=== PATIENT | female | born 1990 | race Caucasian/White ===

== ENCOUNTER 2023-05-27 13:26 | Emergency (ER) | payer OTHER ==
[~2023-05-27] VITALS: Ht 152.4 cm; Wt 49.9 kg
[2023-05-27] MEDS ORDERED: ADENOSINE 6MG/2ML VIAL ONE (13:33)
[2023-05-27 13:53] LABS: BASOPHILS % (AUTO) 0.5 % (0.0-2.0); EOSINOPHILS # (AUTO) 0.1 K/uL (0.0-0.4); HEMATOCRIT 35.8 % (36-48); HEMOGLOBIN 12.2 g/dL (12.0-16.0); LYMPHOCYTES # (AUTO) 3.2 K/uL (1.0-5.5); LYMPHOCYTES % (AUTO) 36.2 % (20.5-51.5); MEAN CORPUSCULAR HEMOGLOBIN 30 pg (27-31); MEAN CORPUSCULAR HGB CONC 34 % (32-36); MEAN CORPUSCULAR VOLUME 88 fL (79.0-98.0); MONOCYTES # (AUTO) 0.4 K/uL (0.0-1.0); NEUTROPHILS % (AUTO) 57.3 % (40.0-70.0); PLATELET COUNT (AUTO) 263 K/uL (130-430); RED BLOOD CELL COUNT(AUTO) 4.06 MIL/uL (4.2-6.2); RED CELL DISTRIBUTION WIDTH 12.9 % (9.0-15.0); WHITE BLOOD COUNT (AUTO) 8.7 K/uL (4.8-10.8)
[2023-05-27 14:16] LABS: ANION GAP 7 (5-15); CALCIUM 8.2 mg/dL (8.4-11.0); CARBON DIOXIDE 27 mmol/L (23-29); CHLORIDE 108 mmol/L (98-107); CREATININE 0.56 mg/dL (0.55-1.30); GFR AFRICAN AMERICAN 159 mL/min (>90); GLUCOSE 91 mg/dL (74-106); POTASSIUM 3.3 mmol/L (3.5-5.1); SODIUM SERUM 142 mmol/L (136-145); UREA NITROGEN, BLOOD 8 mg/dL (8-21)
[2023-05-27 14:25] LABS: GFR NON AFRICAN-AMERICAN 132 mL/min (>90)
[2023-05-27] MEDS ORDERED: ATEN-41 PO (15:14)
[2023-05-27 15:20] VITALS: BP_SYST 126; PULSE 178; RESP 19; TEMP 98.1; O2SAT 98
== END 2023-05-27 15:25 | disposition home or self-care (01) ==
LOC: SED 13:26
DX: I47.10 Supraventricular tachycardia, unspecified (principal); R00.2 Palpitations; R42 Dizziness and giddiness; Z88.5 Allergy status to narcotic agent; Z88.6 Allergy status to analgesic agent; Z79.899 Other long term (current) drug therapy
CPT/HCPCS: 99291; 80048; 83880; 85025; 84484; 36415; 71045; J0153